=== PATIENT | female | born 1955 | race Caucasian/White ===

== ENCOUNTER → 2017-10-07 | Outpatient (REF) | payer BC ==
[2017-10-07 20:34] LABS: BASO # 0.1 10^3/uL (0.0-0.2); BASO % 0.7 % (0.0-1.0); EOS # 0.1 10^3/uL (0.0-0.50); EOS % 0.4 % (0.0-3.0); HEMATOCRIT 42.1 % (36.0-47.0); HEMOGLOBIN 13.6 g/dl (12.0-16.0); IMMATURE GRANULOCYTE # 0.1 10^3/uL (0-0); IMMATURE GRANULOCYTE % 0.4 % (0-0); LYMPH # 2.9 10^3/uL (1.5-4.5); LYMPH % 24.4 % (24.0-44.0); MEAN CORPUSCULAR HEMOGLOBIN 28.4 pg (27.0-33.0); MEAN CORPUSCULAR HGB CONC 32.3 g/dl (32.0-36.5); MEAN CORPUSCULAR VOLUME 87.9 fl (80.0-96.0); MONO # 0.7 10^3/uL (0.0-0.8); MONO % 5.5 % (0.0-5.0); NEUTROPHILS # 8.2 10^3/uL (1.8-7.7); NEUTROPHILS % 68.6 % (36.0-66.0); PLATELET COUNT, AUTOMATED 550 10^3/uL (150-450); RED BLOOD COUNT 4.79 10^6/uL (4.00-5.40)
[2017-10-07 21:02] LABS: ESTIMATED AVERAGE GLUCOSE 123 MG/DL (60-110); HEMOGLOBIN A1c 5.9 %
[2017-10-07 21:13] LABS: ALBUMIN 4.1 GM/DL (3.2-5.2); ALBUMIN/GLOBULIN RATIO 0.98 (1.00-1.93); ALKALINE PHOSPHATASE 103 U/L (45-117); ALT/SGPT 27 U/L (12-78); ANION GAP 7 MEQ/L (8-16); AST/SGOT 18 U/L (7-37); BILIRUBIN,TOTAL 0.4 MG/DL (0.2-1.0); BLOOD UREA NITROGEN 14 MG/DL (7-18); CALCIUM LEVEL 9.6 MG/DL (8.8-10.2); CARBON DIOXIDE LEVEL 26 MEQ/L (21-32); CHLORIDE LEVEL 106 MEQ/L (98-107); CHOLESTEROL LEVEL 245 MG/DL (<200); CHOLESTEROL RISK RATIO 3.888 (<5); GLOMERULAR FILTRATION RATE > 60.0 (>45); GLUCOSE, FASTING 102 MG/DL (70-100); HDL CHOLESTEROL 63 MG/DL (>40); LDL CHOLESTEROL 155.2 MG/DL (<100); NON-HDL-C 182 MG/DL; POTASSIUM SERUM 4.2 MEQ/L (3.5-5.1); SODIUM LEVEL 139 MEQ/L (136-145); TOTAL PROTEIN 8.3 GM/DL (6.4-8.2); TRIGLYCERIDES LEVEL 134 MG/DL (<150)
== END ==
LOC: M SFHCPLAZ 14:41
DX: Z00.00 Encounter for general adult medical examination without abnormal findings (principal)

== ENCOUNTER 2017-10-19 05:43 | Observation (INO) | payer BC ==
[2017-10-18] MEDS: ceFAZolin 2 GM/D5W 50 ML IV BAG (J0690 PER 500MG) As Ordered ×2 (12:10)
[2017-10-19] MEDS ORDERED: LIDOCAINE 1% MDV 20ML VIAL SQ ×2 (06:00)
[2017-10-19] MEDS: LR 1,000 ML IV ×6 (06:00→14:30)
[2017-10-19] MEDS ORDERED: fentaNYL 100 MCG/2 ML INJECTION (J3010) As Ordered ×2 (07:13)
[2017-10-19] MEDS ORDERED: MIDAZOLAM INJ 2 MG/2 ML VIAL (J2250) As Ordered ×4 (07:13→08:56)
[2017-10-19] MEDS ORDERED: ceFAZolin 2 GM/D5W 50 ML IV BAG (J0690 PER 500MG) As Ordered ×2 (07:18)
[2017-10-19] MEDS ORDERED: HEPARIN SOD (PORCINE) 5000 UNITS/ML VIAL As Ordered ×2 (07:26)
[2017-10-19] MEDS: fentaNYL 100 MCG/2 ML INJECTION (J3010) IV ×2 (07:48)
[2017-10-19] MEDS: MIDAZOLAM INJ 2 MG/2 ML VIAL (J2250) IV ×2 (07:48)
[2017-10-19] MEDS ORDERED: ROCURONIUM BROMIDE 50 MG/5 ML VIAL As Ordered ×4 (08:56→10:13)
[2017-10-19] MEDS ORDERED: METOCLOPRAMIDE INJ 10MG/2ML VIAL (J2765) As Ordered ×2 (08:56)
[2017-10-19] MEDS ORDERED: fentaNYL 250 MCG/5 ML INJECTION (J3010) As Ordered ×2 (08:56)
[2017-10-19] MEDS ORDERED: LIDOCAINE 2% INJ 100 MG/5 ML SDV (FOR ANES.) As Ordered ×2 (08:56)
[2017-10-19] MEDS ORDERED: PROPOFOL 200 MG/20 ML VIAL As Ordered ×6 (08:56→13:43)
[2017-10-19] MEDS ORDERED: ONDANSETRON 4MG/2ML VIAL (J2405) As Ordered ×2 (08:56)
[2017-10-19] MEDS ORDERED: ePHEDrine INJ 50 MG/ML VIAL As Ordered ×2 (08:58)
[2017-10-19] MEDS ORDERED: PHENYLephrine HCL 500 MCG/5 ML (100MCG/ML) SYRINGE (J2370) As Ordered ×2 (08:59)
[2017-10-19] MEDS ORDERED: NEOSTIGMINE 10 MG/10 ML VIAL (J2710) As Ordered ×2 (09:00)
[2017-10-19] MEDS ORDERED: GLYCOPYRROLATE INJ 0.2 MG/ML 2 ML VIAL As Ordered ×4 (09:00)
[2017-10-19] MEDS ORDERED: HYDROmorphone HCL 2 MG/ML 1ML VIAL (J1170) As Ordered ×2 (10:27)
[2017-10-19] MEDS ORDERED: EPINEPHrine INJ 1 MG/ML 1ML AMP ×2 (11:52)
[2017-10-19] MEDS ORDERED: ROPIvacaine 0.5% 30 ML INJECTION (J2795 PER 1MG) ×2 (11:52)
[2017-10-19] MEDS ORDERED: dexameTHASONE 10 MG/1 ML VIAL PRES.FREE (J1100) ×2 (11:52)
[2017-10-19] MEDS: BUPIVACAINE HCL 0.5% 10 ML VIAL As Ordered ×2 (13:12)
[2017-10-19] MEDS ORDERED: MORPHINE 4 MG/ML 1ML VIAL (J2270) IV ×2 (14:30)
[2017-10-19] MEDS ORDERED: FLEET ENEMA PR ×2 (14:30)
[2017-10-19] MEDS ORDERED: fentaNYL 100 MCG/2 ML INJECTION (J3010) IV ×2 (14:30)
[2017-10-19] MEDS ORDERED: METOCLOPRAMIDE INJ 10MG/2ML VIAL (J2765) IV ×2 (14:30)
[2017-10-19] MEDS ORDERED: PERCOCET 5MG/325MG TAB PO ×2 (14:30)
[2017-10-19] MEDS ORDERED: MORPHINE 10 MG/ML 1ML VIAL (J2270) IV ×2 (14:30)
[2017-10-19] MEDS ORDERED: oxyCODONE 5MG TAB PO ×2 (14:30)
[2017-10-19] MEDS ORDERED: ONDANSETRON 4MG/2ML VIAL (J2405) IV ×4 (14:30)
[2017-10-19] MEDS: VITAMIN D 1,000 INTERNATIONAL UNITS TABLET PO ×2 (15:55)
[2017-10-19] MEDS: oxyCODONE 5MG TAB PO ×2 (15:56)
[2017-10-19] MEDS: ACETAMINOPHEN 500 MG TAB PO ×4 (17:07→22:44)
[2017-10-20] MEDS: LR 1,000 ML IV ×4 (01:37→11:50)
[2017-10-20] MEDS: ACETAMINOPHEN 500 MG TAB PO ×6 (04:57→22:55)
[2017-10-20] MEDS: oxyCODONE 5MG TAB PO ×8 (05:11→20:04)
[2017-10-20 06:44] LABS: HEMATOCRIT 32.4 % (36.0-47.0); HEMOGLOBIN 10.7 g/dl (12.0-16.0); MEAN CORPUSCULAR HEMOGLOBIN 28.2 pg (27.0-33.0); MEAN CORPUSCULAR VOLUME 85.5 fl (80.0-96.0); PLATELET COUNT, AUTOMATED 425 10^3/uL (150-450); RED BLOOD COUNT 3.79 10^6/uL (4.00-5.40); RED CELL DISTRIBUTION WIDTH 14.1 % (11.5-14.5); WHITE BLOOD COUNT 13.4 10^3/uL (4.0-10.0)
[2017-10-20 06:58] LABS: INR 1.08; PROTHROMBIN TIME 14.1 SECONDS (12.4-14.5)
[2017-10-20 07:03] LABS: ANION GAP 6 MEQ/L (8-16); BLOOD UREA NITROGEN 14 MG/DL (7-18); CALCIUM LEVEL 8.5 MG/DL (8.8-10.2); CARBON DIOXIDE LEVEL 27 MEQ/L (21-32); CHLORIDE LEVEL 110 MEQ/L (98-107); CREATININE FOR GFR 0.69 MG/DL (0.55-1.30); GLOMERULAR FILTRATION RATE > 60.0 (>45); GLUCOSE, FASTING 121 MG/DL (70-100); POTASSIUM SERUM 3.7 MEQ/L (3.5-5.1); SODIUM LEVEL 143 MEQ/L (136-145)
[2017-10-20] MEDS: VITAMIN D 1,000 INTERNATIONAL UNITS TABLET PO ×2 (09:26)
[2017-10-20] MEDS: ASPIRIN 325 MG TAB PO ×4 (09:26→20:04)
[2017-10-21] MEDS: ACETAMINOPHEN 500 MG TAB PO ×2 (06:52)
[2017-10-21] MEDS: oxyCODONE 5MG TAB PO ×2 (06:53)
[2017-10-21 07:25] LABS: INR 1.02; PROTHROMBIN TIME 13.5 SECONDS (12.4-14.5)
[2017-10-21] MEDS: ASPIRIN 325 MG TAB PO ×2 (10:11)
[2017-10-21] MEDS: VITAMIN D 1,000 INTERNATIONAL UNITS TABLET PO ×2 (10:12)
== END 2017-10-21 12:25 | disposition home or self-care (01) ==
LOC: M OR 05:43 → M MS5PR 14:50
DX: M21.41 Flat foot [pes planus] (acquired), right foot (principal); M19.079 Primary osteoarthritis, unspecified ankle and foot; M25.571 Pain in right ankle and joints of right foot; M79.671 Pain in right foot; I10 Essential (primary) hypertension; D47.3 Essential (hemorrhagic) thrombocythemia; E78.00 Pure hypercholesterolemia, unspecified; Z79.01 Long term (current) use of anticoagulants; E66.9 Obesity, unspecified; Z79.899 Other long term (current) drug therapy; Z88.1 Allergy status to other antibiotic agents
CPT/HCPCS: 28735